=== PATIENT | male | born 1945 | race Caucasian/White ===

== ENCOUNTER → 2019-07-15 10:20 | Outpatient (CLI) | payer MEDICARE ==
[~2019-07-15 10:20] MED LIST: BACLOFEN10 MG PO; HYDROCHLOROTH12.5 M1 PO; HYDROCODON-ACE1 EA10 PO; ZOCOR20 MG PO
[2019-07-28 11:04] VITALS: BMI 21.8
== END | disposition home or self-care (01) ==
LOC: D.HCCARDIO 10:20
PROVIDERS: ATTEND Internal Medicine Cardiovascular Disease
DX: R06.09 Other forms of dyspnea (principal)

== ENCOUNTER → 2019-07-28 10:32 | Outpatient (CLI) | payer MEDICARE ==
[~2019-07-28] VITALS: Ht 188 cm; Wt 77.3 kg
--- NOTE | ~2019-07-28 | HEMODYNAMI ---
PATIENT:ADRIAN APARICIO MEDICAL RECORD: [id number] : 47 LOCATION:[facility] ADMISSION DATE: 07/28/19 Generatedon:07/28/201913:36 Patient name: ADRIAN APARICIO Patient #: [id number] SSN: [id number] : 1945 Date of study: 07/28/2019 Page: Of Hemodynamic Procedure Report Patient Data Patient Demographics Procedure consent was obtained First Name: ADRIAN Gender: Male Last Name: MARKUS : 1945 Patient #: [id number] Age: 74 year(s) Race: SSN: [id number] Additional ID: [id number] Contact details [address]: [address] [place] [address] State: [place] City: [place] Zip code: [address] Past Medical History Allergies Allergen Reaction Date Comments Reported Other allergy 07/28/2019 iodine/ Admission Admission Data Admission Date: 07/28/2019 Admission Time: 10:32 Arrival Date: 07/28/2019 Arrival Time: 0:00 Insurance Payor: Medicare [facility] #: [id number] Height (in.): 74.02 BSA: 2.03 (m2) Height (cm.): 188 BMI: 21.79 (kg/m2) Weight (lbs.): 169.76 Weight (kg.): 77 Lab Results Lab Result Date: 07/28/2019 Lab Result Time: 0:00 Biochemistry Name Units Result Min Max BUN mg/dl 6 -*(----)-- 7 18 Creatinine mg/dl 0.9 --(-*--)-- 0.6 1.3 eGFR ml/min 88.82315 -*(----)-- 90 120 NONAFRICAN CBC Name Units Result Min Max Hemoglobin g/dl 13.3 -*(----)-- 13.5 17.5 Procedure Procedure Types Cath Procedure Diagnostic Procedure LHC LHC w/Coronaries Sedation Charges Moderate Sedation up to 15 minutes Procedure Description Procedure Date Procedure Date: 07/28/2019 Procedure Start Time: 13:16 Procedure End Time: 13:34 Procedure Staff Name Function Hemal Zuñiga MD Performing Physician Dana Goins RT Monitor Cris Felder RT Monitor Demetrio Jerome RN Nurse Trudy Allen RT Scrub Procedure Data Cath Procedure Fluoroscopy Diagnostic fluoroscopy Total fluoroscopy Time: 0 time: 0 min min Diagnostic fluoroscopy Total fluoroscopy dose: 606 dose: 606 mGy mGy Contrast Material Contrast Material Type Amount (ml) Isovue 300 89 Entry Location Entry Primary Successful Side Size Upsize Upsize Entry Closure Mock ccessful Closure Location (Fr) 1 (Fr) 2 (Fr) Remarks Device Remarks Radial Right 6 Fr Mechanical artery Short Compression Estimated blood loss: 5 ml Diagnostic catheters Device Type Used For End Catheter Placement DIAGNOSTIC Walker 110cm Procedure 5Fr catheter ([id number]) Procedure Complications No complications Procedure Medications Medication Administration Route Dosage Oxygen etCO2 Nasal cannula 2 l/min Lidocaine 2% added to field 20 Heparin Flush Bag added to field 2 bags (1000units/500ml NS) 0.9% NaCl I.V. 100 ml/hr Radial Cocktail added to field 1 syringe (Verapamil 2mg/Nitro 400mcg/Heparin 1500units) Fentanyl I.V. 50 mcg Versed I.V. 2 mg Versed I.V. 1 mg Fentanyl I.V. 50 mcg Versed I.V. 1 mg Fentanyl I.V. 50 mcg Versed I.V. 1 mg Fentanyl I.V. 50 mcg Hemodynamics Rest BSA: 2.03 (m2) HGB: 13.3 (g/dl) O2 Consumption: Estimated: 236.99 (ml/min) O2 Co nsumption indexed: Estimated:116.74 (ml/min/m) Heart Rate: 74 (bpm) Pressure Samples Time Site Value (mmHg) Purpose Heart Use Rate(bpm) 13:20 LV 139/-18,-2 Snapshot 70 13:20 AO 132/65(94) Pullback 72 13:20 LV 144/8,43 Pullback 72 Gradients Valve Time Site 1 Site 2 Mean SEP/DFP Peak To Heart Use (mmHg) (sec/min) Peak Rate (mmHg) (bpm) Aortic 13:20 LV AO 4 5 12 72 144/8,43 132/65(94) Calculations Valve P-P Mean Valve Index Valve Source Name Gradient Area Flow (cm2) Aortic 12 4 12 4 Snapshots Pre Cath Intra NCS Post Cath Vital Signs Time Heart Resp SPO2 etCO2 NIBP (mmHg) Rhythm Pain Sedation Rate (ipm) (%) (mmHg) Status Level (bpm) 13:05:14 73 21 99 0 182/94(149) NSR 0 (11) 10(A) , No pain 13:09:36 71 20 100 33 178/87(134) NSR 0 (11) 10(A) , No pain 13:13:54 75 14 95 0 166/94(136) NSR 0 (11) 9(A) , No pain 13:18:12 62 18 100 0 167/81(133) NSR 0 (11) 9(A) , No pain 13:23:38 69 19 96 0 146/83(122) NSR 0 (11) 9(A) , No pain 13:27:52 71 12 98 0 156/73(126) NSR 0 (11) 10(A) , No pain 13:32:08 69 13 97 0 144/76(123) NSR 0 (11) 10(A) , No pain Medications Time Medication Route Dose Verified Delivered Reason Notes Effectiveness by by 13:10:03 Oxygen etCO2 2 l/min Hemal Buffie used for Nasal Yogesh Jerome RN procedure cannula 13:10:11 Lidocaine 2% added 20ml Hemal Hemal for local to vial Yogesh Zuñiga MD anesthetic field 13:10:16 Heparin Flush added 2 bags Hemal Hemal used for Bag to Yogesh Zuñiga MD procedure (1000units/500ml field NS) 13:10:25 0.9% NaCl I.V. 100 Hemal Buffie Per ml/hr Yogesh Jerome RN physician 13:10:39 Radial Cocktail added 1 Hemal Hemal for (Verapamil to syringe Yogesh Zuñiga MD vasodilation 2mg/Nitro field 400mcg/Heparin 1500units) 13:11:17 Fentanyl I.V. 50 mcg Hemal Buffie for sedation Yogesh Jerome RN 13:11:26 Versed I.V. 2 mg Hemal Buffie for sedation Yogesh Jerome RN 13:15:42 Versed I.V. 1 mg Hemal Buffie for sedation Yogesh Jerome RN 13:15:45 Fentanyl I.V. 50 mcg Hemal Buffie for sedation Yogesh Jerome RN 13:19:02 Versed I.V. 1 mg Hemal Buffie for sedation Yogesh Jerome RN 13:19:05 Fentanyl I.V. 50 mcg Hemal Buffie for sedation Yogesh Jerome RN 13:28:06 Versed I.V. 1 mg Hemal Buffie for sedation Yogesh Jerome RN 13:28:11 Fentanyl I.V. 50 mcg Hemal Joannie for sedation Yogesh Jerome RN Procedure Log Time Note 12:42:45 Informed consent obtained and on chart 12:43:49 Lab Result : BUN 6 mg/dl 12:43:49 Lab Result : eGFR NONAFRICAN 88.73176 ml/min 12:43:49 Lab Result : Hemoglobin 13.3 g/dl 12:43:49 Lab Result : Creatinine 0.9 mg/dl 12:43:57 Arrival Date: 07/28/2019 12:00:00 AM 12:44:36 Insurance Payor : Medicare 12:44:42 Patient Height : 74.02 inches 12:44:47 Patient Weight : 169.76 lbs 12:45:08 Diagnostic Cath Status : Elective 12:47:20 Procedure Status Elective Heart Cath (OP). 12:47:24 Demetrio Jerome RN sent for patient. Start room use. 12:47:27 Time tracking: Regular hours (M-F 7:00 - 5:00) 12:47:36 Plan of Care:Hemodynamics will remain stable., Cardiac rhythm will remain stable., Comfort level will be maintained., Respiratory function will remain adequate., Patient/ family verbilizes understanding of procedure., Procedure tolerated without complication., Recovers from procedure without complications.. 12:52:22 ACC Patient presents with No angina; no symptoms CCS Anginal Class 2--Slight limitation of ordinary activity. 12:52:48 ACCPatient has been prescribed/administered the following anti-anginal medication within the last 2 weeks: LAKESHIA-Inhibitor 12:57:43 Patient received from Pre/Post Procedure Room to CCL 1 Alert and oriented. Tansferred to table in Supine position. 12:57:46 Warm blankets applied, and ector hugger turned on for patient comfort. 12:57:47 Correct patient and procedure confirmed by team. 12:58:02 Family in patients room. 12:58:06 Patient NPO since Midnight. 12:59:17 Patient allergic to Other allergyiodine/ 13:00:26 Is the patient allergic to Iodine/contrast media? Yes. 13:00:29 Was the patient premedicated? Yes 13:00:32 Is patient on blood thinner?No 13:00:40 Patient diabetic? No. 13:00:43 ----Pre-sedation anethsthesia assessment.---- 13:00:48 Previous problem with sedation/anesthesia? No ? 13:00:52 Snore? Yes 13:00:54 Sleep apnea? No 13:00:57 Deviated septum? No 13:00:59 Opens mouth fully? Yes 13:01:01 Sticks out tongue? Yes 13:01:05 Airway obstruction? No ? 13:01:24 Dentures? yes, taken out in ccl#1? 13:01:41 ECG and BP/O2 sat monitors applied to patient. 13:01:58 H&P Date Dictated: 07/28/2019 H&P Addendum completed by physician on da y of procedure. (MUST COMPLETE FOR ALL OUTPATIENTS), New H&P dictated by physician.. 13:02:01 Pre-procedure instructions explained to patient. 13:02:02 Pre-op teaching completed and patient verbalized understanding. 13:02:18 Lab results completed and on chart. 13:02:26 Risk of Mortality: 0.1 13:02:30 Risk of blood transfusion: 0.2 13:02:36 Risk of RONEL: 0.8 13:02:59 Vital chart was started 13:03:00 Baseline sample Acquired. 13:03:07 Rhythm: sinus rhythm 13:03:10 Full Disclosure recording started 13:03:10 - 13:04:03 Right Radial & Right Groin area was prepped with chlora-prep and draped in sterile fashion 13:04:05 Alarms reviewed by R. N. 13:04:06 Sharps counted by scrub and verified by R.N. 13:04:15 Use device set Radial Dx or PCI 13:04:17 ACIST Syringe (50570) opened to sterile field. 13:04:18 Medline Cath Pack ([id number]) opened to sterile field. 13:04:18 Bag Decanter (2002S) opened to sterile field. 13:04:19 ACIST Hand Control (25148) opened to sterile field. 13:04:20 ACIST Manifold (85893) opened to sterile field. 13:04:21 Tegaderm 4 x 4 (1626W) opened to sterile field. 13:04:22 MBrace Wrist Support ([id number]) opened to sterile field. 13:04:23 NEEDLE Cook 21G 4cm Radial (N01293) opened to sterile field. 13:04:26 EMERALD Guide Wire (696-506) opened to sterile field. 13:04:27 SHEATH 6FR RAIN (2439878) opened to sterile field. 13:06:25 Pre procedure: right dorsailis pedis pulse 2+ Normal; easily identifiable; not easily obliterated 13:06:33 Patient pain scale 0/10 ?. 13:06:40 IV patent on arrival in left forearm with 0.9% NaCl at [facility]. 13:10:03 Oxygen 2 l/min etCO2 Nasal cannula was administered by Demetrio Jerome RN; used for procedure; Verbal order read back and verified. 13:10:11 Lidocaine 2% 20ml vial added to field was administered by Hemal Zuñiga MD ; for local anesthetic; Verbal order read back and verified. 13:10:16 Heparin Flush Bag (1000units/500ml NS) 2 bags added to field was administered by Hemal Zuñiga MD; used for procedure; Verbal order read back and verified. 13:10:25 0.9% NaCl 100 ml/hr I.V. was administered by Demetrio Jerome RN; Per physician; Verbal order read back and verified. 13:10:39 Radial Cocktail (Verapamil 2mg/Nitro 400mcg/Heparin 1500units) 1 syring e added to field was administered by Hemal Zuñiga MD; for vasodilation; Verbal order read back and verified. 13:10:46 --------ALL STOP TIME OUT------ 13:10:46 Final Timeout: patient, procedure, and site verified with staff and physician. All members of the team are in agreement. 13:10:48 Right Radial & Right Groin site verified by team. 13:10:52 Fire Safety Assessment: A--An alcohol-based skin anteseptic being used preoperatively., C--Open oxygen or nitrous oxide is being used., D--An ESU, laser, or fiber-optic light is being used. 13:10:55 Physical assessment completed. ASA score P 2 - A patient with mild systemic disease as per Hemal Zuñiga MD. 13:10:59 2) 60-89 Mildly reduced kidney function, and other findings (as for stage 1) point to kidney disease. 13:11:17 Fentanyl 50 mcg I.V. was administered by Demetrio Jerome RN; for sedation; Verbal order read back and verified. 13:11:23 Maximum allowable contrast dose (3.7 X eGFR X 0.75)244 ml. 13:11:26 Versed 2 mg I.V. was administered by Demetrio Jerome RN; for sedation; Verbal order read back and verified. 13:11:27 Sedation plan: IV Moderate Sedation Medication:Versed, Fentanyl 13:13:05 Zero performed for pressure channel P1 13:15:42 Versed 1 mg I.V. was administered by Demetrio Jerome RN; for sedation; Verbal order read back and verified. 13:15:45 Fentanyl 50 mcg I.V. was administered by Demetrio Jerome RN; for sedation; Verbal order read back and verified. 13:16:24 Procedure started. 13:16:59 Local anesthetic to right radial artery with Lidocaine 2% by Hemal Zuñiga MD.INITIAL ACCESS ONLY 13:18:28 A 6 Fr Short sheath was inserted into the Right Radial artery 13:18:52 A DIAGNOSTIC Walker 110cm 5Fr catheter ([id number]) was advanced over the wire and used for Procedure. 13:19:02 Versed 1 mg I.V. was administered by Demetrio Jerome RN; for sedation; Verbal order read back and verified. 13:19:05 Fentanyl 50 mcg I.V. was administered by Demetrio Jerome RN; for sedation; Verbal order read back and verified. 13:19:28 LV gram done using MACIAS 13:19:35 Injector settings: Ml/sec: 5, Volume: 15, 13:20:13 LV hemodynamics recorded. 13:20:26 EF : 60 % 13:21:27 LCA angiography performed. 13::50 Injector settings: Ml/sec: 3, Volume: 5, 13:24:54 RCA angiography performed. 13:25:07 ACCDominant side:Co-Dominant 13:25:50 Injector settings: Ml/sec: 3, Volume: 5, 13:28:06 Versed 1 mg I.V. was administered by Demetrio Jerome RN; for sedation; Verbal order read back and verified. 13:28:11 Fentanyl 50 mcg I.V. was administered by Demetrio Jerome RN; for sedation; Verbal order read back and verified. 13:29:49 Catheter removed. 13:30:03 ZEPHYR REGULAR TR BAND ([id number]) opened to sterile field. 13:30:15 Procedure ended.(Physican Out) 13:30:46 Sheath removed intact; hemostasis achieved with Mechanical Compression to the Right Radial artery. 13:31:00 Contrast amount:Isovue 300 89ml. 13:31:13 Fluoroscopy time 00.00 minutes. 13:31:21 Fluoroscopy dose: 606 mGy 13:31:21 Flurop Dose total: 606 13:31:33 Dose Area Product 39793 mGy/cm. 13:31:39 Maximum allowable dose exceeded? No. 13:31:41 Sharps counted by scrub and verified by R.N. 13:31:46 [place] band inflated with 10cc of air. 13:31:49 Insertion/operative site no bleeding no hematoma. 13:31:59 Post right radial artery:stable 13:32:03 Post Procedure Pulses reassessed and unchanged 13:32:08 Post-procedure physical assessment completed. ASA score P 2 - A patient with mild systemic disease as per Hemal Zuñiga MD. 13:32:12 Post procedure rhythm: unchanged. 13:32:16 Estimated blood loss: 5 ml 13:32:19 Post procedure instruction explained to patient.Patient verbalizes understanding. 13:32:20 Patient needs reinforcement of post procedure teaching. 13:33:00 Procedure type changed to Cath procedure, Diagnostic procedure, LHC, C w/Coronaries, Sedation Charges, Moderate Sedation up to 15 minutes 13:33:02 Procedure and supply charges have been captured, reviewed, submitted an d are correct. 13:33:38 Procedure Complication : No complications 13:33:43 Vital chart was stopped 13:33:58 [facility] Findings: MVD- will discuss options w/ pt or CABG. 13:34:04 Operative report dictated upon procedure completion. 13:34:34 See physician's report for complete and final results. 13:34:38 Report given to Pre/Post Procedure Room. 13:34:42 Patient transfered to Pre/Post Procedure Room with Stretcher. 13:34:45 Procedure ended. 13:34:45 Full Disclosure recording stopped 13:34:49 End room use (Document Last) Device Usage Item Name Manufacture Quantity Catalog Hospital Part Current Minima l Lot# / Number Charge Number Stock Stock Serial# Code ACIST Acist 1 88887 068539 [id number] [id number] 20 Syringe Medical (16020) Systems Inc Medline Medline 1 [id number] [id number] 17062 699955 5 Cath Pack ([id number]) Bag Microtek 1 2001S 789913 98568 344789 5 Decanter Medical Inc. () ACIST Hand Acist 1 90905 628332 226559 346436 5 Control Medical (28510) Systems Inc ACIST Acist 1 60075 052470 865156 047627 5 Manifold Medical (24122) Systems Inc Tegaderm 4 3M 1 1626W 768983 272508 532254 5 x 4 (1626W) MBrace Advanced 1 140-0250-00 933130 47144 337928 5 Wrist Vascular Support Dynamics ([id number]) NEEDLE Wummelk[employer] Medical 1 X47161 387768 079937 386356 5 21G 4cm Radial (D02593) EMERALD Cardinal 1 502-455 213834 826955 518767 5 Guide Wire Health (502-455) SHEATH 6FR Cardinal 1 [id number] 227266 2838867 776684 5 [facility] (3933935) DIAGNOSTIC Terumo 1 40-5023 590553 887855 958614 5 Walker 110cm 5Fr catheter (479256) ZEPHYR Cardinal 1 375500 997774 6035686 116009 5 REGULAR TR Health BAND (276078) Signature Audit [place] Stage Time Signature Unsigned Intra-Procedure 07/28/2019 Cris 1:35:40 PM Bradford RT(R) (CV) Intra-Procedure 07/28/2019 Demetrio Jerome RN 1:36:14 PM Intra-Procedure 07/28/2019 Hemal Zuñiga MD 1:36:48 PM [facility] [address] [facility] [place] [address]
[2019-07-28 11:04] VITALS: BP 190/84; Ht 188 cm; Wt 77.3 kg
[2019-07-28 11:12] LABS: BASOPHILS 0.4 % (0-2); EOSINOPHILS 3.7 % (0-7); HEMATOCRIT 40.6 % (42.0-54.0); HEMOGLOBIN 13.3 g/dL (13.5-17.5); IMMATURE GRANULOCYTES 0.1 % (0-5); LYMPHOCYTES 41.8 % (15-50); MCH 30.4 pg (26.0-34.0); MCHC 32.8 g/dL (31.0-37.0); MCV 92.7 fL (80.0-100.0); MEAN PLATELET VOLUME 10.2 fL (7.4-10.4); MONOCYTES 9.1 % (2-11); NEUTROPHILS 44.9 % (40-80); PLATELET COUNT 255 10x3/uL (130-400); RBC 4.38 10x6/uL (4.20-6.10); RDW 13.5 % (11.5-14.5); WBC 7.6 10x3/uL (4.8-10.8)
[2019-07-28 11:26] LABS: ALT (SGPT) 17 U/L (10-68); CALC OSMOLALITY 278 mosm/kg (275-300); CALCIUM 9.4 mg/dL (8.5-10.1); CARBON DIOXIDE 32.1 mmol/L (21.0-32.0); CHLORIDE - SERUM 105 mmol/L (98-107); CHOL - HDL RATIO 3.7 ratio (2.3-4.9); CHOLESTEROL, TOTAL 217 mg/dL (0-200); CREATININE - SERUM 0.9 mg/dL (0.6-1.3); GLUCOSE 95 mg/dL (74-106); HDL CHOLESTEROL 58 mg/dL (32-96); LDL CHOLESTEROL 140 mg/dL (0-100); LDL-HDL RATIO 2.4 ratio (1.5-3.5); POTASSIUM - SERUM 3.9 mmol/L (3.5-5.1); SODIUM 141 mmol/L (136-145); TRIGLYCERIDE 95 mg/dL (30-200); UREA NITROGEN 6 mg/dL (7-18); eGFR NON AFRICAN AMERICAN 88 mL/min (90-120)
--- NOTE | 2019-07-28 13:43 | NUR ---
PT ARRIVED BY STRETCHER. PLACED ON MONITORS. ASSESSMENT COMPLETED. DR. RIVAS AT BEDSIDE AND SPOKE WITH PT'S .
--- NOTE | 2019-07-28 13:58 | NUR ---
PT RESTING COMFORTABLY. VSS. RIGHT WRIST BAND IN PLACE. NO BLEEDING/HEMATOMA NOTED. CALL LIGHT WITHIN REACH. FAMILY AT BEDSIDE. VSS.
--- NOTE | 2019-07-28 14:30 | NUR ---
PT RESTING COMFORTABLY. RIGHT WRIST BAND IN PLACE. NO BLEEDING/HEMATOMA NOTED. VSS. CALL LIGHT WITHIN REACH.
--- NOTE | 2019-07-28 15:00 | NUR ---
PT SITTING UP AND EATING SANDWICH. DENIES NAUSEA. RIGHT WRIST BAND IN PLACE. NO BLEEDING/HEMATOMA NOTED. FAMILY AT BEDSIDE.
--- NOTE | 2019-07-28 15:30 | NUR ---
1cc OF AIR REMOVED FROM Z BAND. TOLERATED WELL. NO BLEEDING/HEMATOMA NOTED. FAMILY AT BEDSIDE.
--- NOTE | 2019-07-28 15:42 | NUR ---
DR. RIVAS AT BEDSIDE. SPEAKING WITH PT AND PT'S FAMILY. THEY WANT TO GO TO [facility] [place]. DR. RIVAS STATES HE WILL FOLLOW UP AND DO REFERRAL TO [facility] PER PT AND PT'S FAMILY REQUEST.
--- NOTE | 2019-07-28 15:45 | NUR ---
2cc OF AIR REMOVED FROM Z BAND. TOLERATED WELL. NO BLEEDING/HEMATOMA NOTED. FAMILY AT BEDSIDE. VSS.
--- NOTE | 2019-07-28 16:45 | NUR ---
PIV D/C'D WITH CATH TIP INTACT. Z BAND REMOVED AND DRESSING APPLIED. NO BLEEDING/HEMATOMA NOTED. RIGHT WRIST BRACE IN PLACE. PT INSTRUCTED TO KEEP ON FOR 2 HOURS AFTER ARRIVAL HOME. THEY VOICED UNDERSTANDING. DISCUSSED DISCHARGE INSTRUCTIONS WITH PT AND PT'S FAMILY.
--- NOTE | 2019-07-28 17:00 | NUR ---
PT AMBULATED TO RESTROOM. VOIDED WITHOUT DIFFICULTY. TAKEN TO VEHICLE BY WHEELCHAIR. NO S/S OF DISTRESS NOTED. ALL BELONGINGS AND PAPERWORK IN HAND. RIGHT WRIST DRESSING C/D/I. NO S/S OF HEMATOMA NOTED.
== END | disposition home or self-care (01) ==
LOC: D.CATH 10:32
PROVIDERS: ATTEND Internal Medicine Cardiovascular Disease
DX: I25.119 Atherosclerotic heart disease of native coronary artery with unspecified angina pectoris (principal); R94.30 Abnormal result of cardiovascular function study, unspecified